=== PATIENT | male | born 1955 | race Caucasian/White ===

== ENCOUNTER 2019-03-23 06:04 | Outpatient (CLI) | payer MEDICARE ==
--- NOTE | 2019-03-25 18:46 | EKG ---
Test Reason : Blood Pressure : / mmHG Vent. Rate : 070 BPM Atrial Rate : 070 BPM P-R Int : 160 ms QRS Dur : 100 ms QT Int : 394 ms P-R-T Axes : 053 005 048 degrees QTc Int : 425 ms Normal sinus rhythm Nonspecific ST abnormality Abnormal ECG When compared with ECG of 27-MAY-2016 13:42, Premature ventricular complexes are no longer Present Vent. rate has decreased BY 53 BPM Nonspecific T wave abnormality, improved in Inferior leads Nonspecific T wave abnormality no longer evident in Lateral leads Confirmed by DR. Cameron LONDONO ([id number]) on 03/25/2019 6:45:47 PM Referred By: DANAE Confirmed By:DR. Cameron LONDONO
== END 2019-03-23 06:05 | disposition home or self-care (01) ==
LOC: LABBT 06:04
PROVIDERS: ATTEND Urology
DX: Z01.818 Encounter for other preprocedural examination (principal); C61 Malignant neoplasm of prostate
CPT/HCPCS: 93005; 93010

== ENCOUNTER 2019-03-23 10:30 | Inpatient (IN) | payer MEDICARE ==
[2019-03-23 10:18] VITALS: BMI 33.5
[2019-03-23 11:36] LABS: Hemoglobin 14.4 g/dL (14.0-18.0); Mean Corpuscular HGB CONC 35.7 g/dL (32.0-36.0); Mean Corpuscular Hemoglobin 34.9 pg (27.0-31.0); Mean Corpuscular Volume 97.7 fL (78.0-98.0); Mean Platelet Volume 6.6 fL (7.4-10.4); Platelet Count 222 thou/uL (130-400); RBC Distribution Width 11.6 % (11.5-14.5); Red Blood Cell (RBC) Count 4.12 mill/uL (4.70-6.10); White Blood Cell (WBC) Count 7.4 thou/uL (4.8-10.8)
[2019-03-23 11:38] LABS: Bacteria/HPF None Seen HPF (None Seen); Bilirubin Negative (Negative); Blood, Urine Negative (Negative); Clarity Clear (Clear); Glucose, Urine (Dipstick) Normal (Negative); Leukocyte Negative Leu/uL (Negative); Nitrite Negative (Negative); Protein, Urine (Dipstick) Negative (Neg-Trace); RBC/HPF 0-3 HPF (0-3); Squamous Epithelial None Seen HPF (0-3); Urobilinogen Normal mg/dL (Less than 2); WBC/HPF 0-3 HPF (0-3)
[2019-03-23 11:42] LABS: INR-International Normal Ratio 0.9; PTT 26.1 SEC (22.9-36.1); Prothrombin Time 12.4 SEC (12.0-14.7)
[2019-03-23 13:07] LABS: ALT (SGPT) 33 U/L (8-55); AST (SGOT) 28 U/L (5-34); Albumin 4.5 g/dL (3.4-4.8); Alkaline Phosphatase 68 U/L (40-110); Anion Gap 17 mmol/L (10-20); BUN (Urea Nitrogen) 14 mg/dL (8.4-25.7); Bilirubin, Total 0.9 mg/dL (0.2-1.2); Calc. Creatinine Clearance 0 mL/min (70-130); Calcium 9.9 mg/dL (7.8-10.44); Carbon Dioxide 22 mmol/L (23-31); Chloride 105 mmol/L (98-107); Estimated GFR-MDRD 47; Globulin 2.5 g/dL (2.4-3.5); Glucose 102 mg/dL (80-115); Potassium 4.7 mmol/L (3.5-5.1); Sodium 139 mmol/L (136-145)
[2019-03-30] MEDS ORDERED: Calcium Chloride 1 GM/10 ML Abboject SYRINGE ONE (10:02)
[2019-03-30] MEDS ORDERED: PHENYLEPHRINE-NS 100 MCG/ML 10 ML SYRINGE ONE (10:02)
[2019-03-30] MEDS ORDERED: ePHEDrine/0.9% NaCl/PF SYRINGE 50 mg/10 ml ONE (10:02)
[2019-03-30] MEDS ORDERED: Dexamethasone 20 MG/5 ML VIAL ONE (10:02)
[2019-03-30] MEDS ORDERED: Glycopyrrolate 0.2 MG/ML 5 ML SYRINGE ONE (10:02)
[2019-03-30] MEDS ORDERED: PROPOFOL 200 MG/20 ML VIAL ONE (10:02)
[2019-03-30] MEDS ORDERED: Rocuronium Bromide 10 MG/ML (10ML VIAL) ONE (10:02)
[2019-03-30] MEDS ORDERED: Ondansetron PF 4 MG/2 ML Vial ONE (10:02)
[2019-03-30] MEDS ORDERED: Gentamicin 80 MG/2 ML VIAL ONE ×2 (11:51→13:14)
[2019-03-30] MEDS ORDERED: Sodium Chloride 0.9% 0 ML ONE ×2 (11:51→13:14)
[2019-03-30] MEDS ORDERED: Midazolam HCl 2 mg/2 ml Vial ONE (11:55)
[2019-03-30] MEDS ORDERED: cefOXitin Sodium/Dextrose,Iso 1 GM in Premix Bag 1 BAG IVPB SCH (12:00)
[2019-03-30] MEDS ORDERED: Fentanyl 250 MCG/5 ML VIAL ONE (12:58)
[2019-03-30] MEDS ORDERED: HYDROmorphone 0.5 MG/0.5 ML SYRINGE ONE (12:59)
[2019-03-30] MEDS ORDERED: Albuterol Sulfate 1.25 MG/3 ML NEB ONE (13:15)
[2019-03-30] MEDS ORDERED: Rocuronium Bromide 50 MG/5 ML VIAL ONE (15:01)
[2019-03-30] MEDS ORDERED: SUGAMMADEX SODIUM 200 MG/2 ML VIAL ONE (16:04)
[2019-03-30] MEDS ORDERED: B & O ONE (17:04)
[2019-03-30] MEDS ORDERED: Promethazine HCl 25 MG/ML VIAL SLOW IVP PRN (17:27)
[2019-03-30] MEDS ORDERED: HYDROmorphone 2 MG/ML VIAL SLOW IVP PRN (17:27)
[2019-03-30] MEDS ORDERED: Ondansetron HCl/PF 4 MG/2 ML Vial IVP PRN (17:27)
[2019-03-30] MEDS ORDERED: Promethazine HCl 25 MG/ML VIAL IM PRN (17:27)
[2019-03-30 18:20] LABS: Hemoglobin 12.5 g/dL (14.0-18.0)
[2019-03-30] MEDS ORDERED: Dextrose 50% Abboject 50 ML SYRINGE SLOW IVP PRN (20:21)
[2019-03-30] MEDS ORDERED: Dextrose 5% in Water 1,000 ML IV PRN (20:21)
[2019-03-30] MEDS ORDERED: Morphine 2 MG/ML SYRINGE SLOW IVP PRN (20:21)
[2019-03-30] MEDS ORDERED: Bisacodyl 10 MG SUPP PR PRN (20:21)
[2019-03-30] MEDS ORDERED: diphenhydrAMINE 25 MG CAP PO PRN (20:21)
[2019-03-30] MEDS ORDERED: hydrALAZINE 20 MG/ML VIAL SLOW IVP PRN (20:21)
[2019-03-30] MEDS ORDERED: Oxybutynin 5 MG TAB PO PRN (20:21)
[2019-03-30] MEDS ORDERED: Sodium Chloride 0.9% 1,000 ML IV SCH (20:21)
[2019-03-30] MEDS ORDERED: Ondansetron PF 4 MG/2 ML Vial IVP PRN (20:21)
[2019-03-30] MEDS ORDERED: Non-Formulary Item 1 EACH (Gabapentin [Gabapentin] 1 TAB) PO SCH (20:21)
[2019-03-30] MEDS ORDERED: Mag-Al 1200 mg/1200 mg/30 ML UDCUP PO PRN (20:21)
[2019-03-30] MEDS ORDERED: Insulin Regular 300 UNITS/3 ML VIAL SC PRN (20:21)
[2019-03-30] MEDS ORDERED: Hyoscyamine Sulfate SL 0.125 mg Tablet SL PRN (20:21)
[2019-03-30] MEDS ORDERED: HYDROcodone/Acetaminophen 5/325 mg Tablet PO PRN ×2 (20:21)
[2019-03-30] MEDS ORDERED: Morphine 4 MG/ML VIAL SLOW IVP PRN (20:21)
[2019-03-30] MEDS: cefOXitin 1.5 GM in Sodium Chloride 0.9% 100 ML IVPB SCH (21:13)
[2019-03-30] MEDS: Famotidine/PF 20 mg/2ml Vial SLOW IVP SCH (21:13)
[2019-03-30] MEDS: Docusate 100 MG CAP PO SCH (21:13)
--- NOTE | 2019-03-31 01:20 | OP ---
DATE OF PROCEDURE: 03/30/2019 SERVICE: Urology. [employer] COMM[employer]ION AGENT: Josie Chaudhry DO PREOPERATIVE DIAGNOSIS: Prostate cancer. POSTOPERATIVE DIAGNOSIS: Prostate cancer. PROCEDURE PERFORMED: Radical retropubic prostatectomy with unilateral left pelvic lymph node dissection. INDICATION FOR PROCEDURE: Mr. Pastrana is a 63-year-old white male with diagnosis of Ashli 3 + 4 prostate cancer with a PSA of 7.2. I had talked to him about prostatectomy versus active surveillance versus radiation. Due to his comorbidities and risk factors, I recommended radiation, first line. However, the patient did not want radiation as he does not want the side effects associated with this. He stated he would rather go for surgery. Due to his comorbidities and size, I opted for an open prostatectomy or referral to a tertiary care center. He opted to go for an open surgery here. Risks and benefits were discussed and he agreed to proceed forward. DESCRIPTION OF PROCEDURE: After identification of armband and verification of consent, the patient was brought back to the operating room. He underwent general anesthesia with endotracheal intubation. He was then placed in the supine position with the bed flexed. Pressure points padded and prepped and draped in usual sterile fashion. After appropriate time-out, a Mcgee catheter, 16-Micronesian, was placed with ease into the patient's bladder. Incision was initially made from the pubic symphysis over to just below the umbilicus using a 10 blade. Dissection was carried down through the fatty tissues up to the external oblique aponeurosis in the midline. This was divided using the 15 blade. Hemostasis was then performed on the fatty tissues with Bovie electrocautery. The rectus muscles were in the midline down to the pyramidalis muscles which were also divided down to the pubic symphysis and dissected upward up to the arcuate line. The space of Retzius was developed on either side of the prostate and bladder to develop the space all the way down toward the rectum. The iliac veins were identified on both sides. A Bookwalter retractor was then placed and used for retraction of the bladder cephalad and for exposure. The tissues above the puboprostatic ligaments were cauterized and removed. The endopelvic fasciae on both sides were swept clear. At this point , we elected to start with the lymph node dissection. We started on the left side where the lymph nodes were cleared off the iliac vein down to the obturator nerve. There was not a significant amount of tissue, but the packet was submitted for routine pathologic evaluation. On the right side, the lymph node dissection was begun, but due to an injury to the circumflex femoral vein, which resulted in bleeding, we opted to abort the lymph node dissection on this side. The vein was controlled using a 3-0 Vicryl on an RB-1 to suture ligate the vein, which resulted in excellent hemostasis. There was no further bleeding on this side. The dissection was aborted. The obturator nerve was identified and found to be unharmed on both sides. The bladder was then retracted back again in the cephalad position along the midline. The endopelvics were opened on both sides of the prostate using right angle and Bovie electrocautery. The periprosthetic space was then developed bluntly using a digital dissection. Once the DVC was isolated, a right angle was used to pass a 0 Vicryl around the dorsal venous complex and then ligated down and additional ligation was performed with a [address]-1, which was double passed and then tied down. The DVC was then divided using Bovie electrocautery down to the urethra. The urethra was then opened, using a 15 blade on a long knife handle to cut the anterior and lateral aspects of the urethra. The rectourethralis muscle was then gently from the rectum underneath using a right angle and Metzenbaum scissors used to cut the rectourethralis muscle. The prostate was then dissected back manually along Denonvilliers fascia toward the seminal vesicles. The pedicles on both sides were dissected off the rectum with a right angle and then cauterized with Bovie electrocautery. Nerve sparing was not performed secondary to the patient's comorbidities and pre-existing ED. The prostate was dissected back until the lateral pedicles were identified. These were ligated and then divided using Bovie electrocautery. The seminal vesicles were then identified and dissected deep into the patient's pelvis to allow exposure of the vas deferens and seminal vesicles. Due to some adherence and attachments at the tips, we were not able to get the entire seminal vesicle out, but got probably about 50% of the seminal vesicles, which were divided and removed and left attached to the prostate. The tips of the seminal vesicles were left inside the patient's prostate as they were too deep to be able to remove. The vas deferens were clipped and ligated on both sides. The bladder neck dissection was then begun and done sharply with Metzenbaum scissors for a bladder neck sparing dissection. This was taken all the way down to the urethra, which was then sharply divided. The prostate was then freed and delivered for routine pathologic evaluation. Inspection of the rectum did not demonstrate any rectal injuries. There was no significant bleeding from the pelvic sidewall. There was mild oozing from along the bladder neck and from along the seminal vesicle dissection site, but this was relatively mild. Sutures were then placed using a 2-0 Vicryl on a UR-6 at 12 o'clock, 3 o'clock, 9 o'clock, 7 o' clock, 5 o'clock and 6 o'clock from an outside-in fashion on the urethral side and then from an inside-out fashion on the bladder neck side. A working catheter was used to guide the sutures and once all the sutures had been placed on the urethral side and the posterior sutures placed on the anastomotic side, an 18-Micronesian Mcgee catheter was guided into the patient's bladder and 10 mL of sterile water placed into the balloon. The remainder of the anastomotic stitches were then passed through the corresponding locations on the bladder neck side. An additional 5 mL was then placed into the balloon for a total of 15 mL of sterile water in the balloon. The Bookwalter retractors were then taken off the bladder and some of the flexion taken off the bed to allow the bladder neck to come down toward the base of the urethra. The sutures were then gently cinched down and tied completely until there was good coaptation of the bladder neck onto the urethra. The pelvis was then copiously irrigated and the irrigation removed. The site of the pelvic lymph node dissection on the right was reinspected and there was not found to be any bleeding. FloSeal was applied to this area as well as along the dorsal venous complex and around the bladder neck. A CHANELLE drain was then brought in along the patient's left side taking care to avoid the epigastric artery, which could be palpated underneath the fascia. The drain was positioned, not directly over, but on the anterior aspect of the bladder. This was sewed in with a 3-0 nylon. The fascia was then closed using a #1 PDS in a running fashion from above and below meeting at the midline, taking care not to get too close to or ligate the drain. The incision was then copiously irrigated and dried. Devang was applied to the subcutaneous tissues and the skin closed with surgical skin kimo. The patient was then taken out of positioning. He had a StatLock affixed to his catheter and a 16A B and O suppository was placed by the surgeon when there was no blood on examining finger. The patient was then awakened and taken to PACU for recovery in stable condition. COMPLICATIONS: Right circumflex femoral vein injury which resulted in inability to complete the right-sided pelvic lymph node dissection. This was controlled with suture ligation and there was no significant sequelae or consequence to this. ESTIMATED BLOOD LOSS: 600 mL. RETAINED TUBES AND DRAINS: A #19 CHANELLE drain as well as 18-Micronesian Mcgee catheter. SPECIMENS: Prostate, seminal vesicles, and left obturator lymph nodes. DISPOSITION: The patient will be admitted to the hospital for postoperative recovery. We will keep him in the hospital for approximately 2-3 days at which point, he should be cleared for discharge to go home with his catheter. We will plan his void trial in approximately 2 weeks. Job ID: [id number] [facility]
[2019-03-31 05:17] LABS: #Eosinphils 0.1 thou/uL (0.0-0.7); #Lymphocytes 1.4 thou/uL (1.20-3.40); #Monocytes 1.2 thou/uL (0.11-0.59); #Neutrophils 10.2 thou/uL (1.40-6.50); %Basophils 0.2 % (0.0-1.0); %Eosinophils 0.4 % (0.0-10.0); %Lymphocytes 10.6 % (21.0-51.0); %Monocytes 9.6 % (0.0-10.0); %Neutrophils 79.2 % (42.0-75.0); Hemoglobin 12.1 g/dL (14.0-18.0); Mean Corpuscular HGB CONC 35.4 g/dL (32.0-36.0); Mean Corpuscular Hemoglobin 35.2 pg (27.0-31.0); Mean Corpuscular Volume 99.4 fL (78.0-98.0); Mean Platelet Volume 6.3 fL (7.4-10.4); Platelet Count 171 thou/uL (130-400); RBC Distribution Width 12.1 % (11.5-14.5); Red Blood Cell (RBC) Count 3.45 mill/uL (4.70-6.10); White Blood Cell (WBC) Count 12.9 thou/uL (4.8-10.8)
[2019-03-31] MEDS: cefOXitin 1.5 GM in Sodium Chloride 0.9% 100 ML IVPB SCH ×2 (05:33→12:52)
[2019-03-31 05:41] LABS: Anion Gap 15 mmol/L (10-20); BUN (Urea Nitrogen) 12 mg/dL (8.4-25.7); Calc. Creatinine Clearance 101 mL/min (70-130); Calcium 8.4 mg/dL (7.8-10.44); Carbon Dioxide 21 mmol/L (23-31); Chloride 105 mmol/L (98-107); Estimated GFR-MDRD 63; Glucose 130 mg/dL (80-115); Potassium 4.4 mmol/L (3.5-5.1); Sodium 137 mmol/L (136-145)
[2019-03-31] MEDS: Carvedilol 6.25 MG TAB PO SCH ×2 (09:02→17:35)
[2019-03-31] MEDS: Lisinopril 2.5 MG TAB PO SCH (09:02)
[2019-03-31] MEDS: Docusate 100 MG CAP PO SCH ×2 (09:03→20:37)
[2019-03-31] MEDS: Furosemide 40 MG TAB PO SCH (09:03)
[2019-03-31] MEDS: Famotidine/PF 20 mg/2ml Vial SLOW IVP SCH ×2 (09:03→20:37)
[2019-03-31] MEDS: Potassium Chloride 10 MEQ TAB PO SCH ×2 (09:03→17:35)
[2019-03-31] MEDS: Albuterol Sulfate 2.5 mg/3 ml Neb NEB PRN ×2 (09:42→18:44)
--- NOTE | 2019-03-31 21:42 | PRG ---
DATE OF SERVICE: 03/31/2019 SUBJECTIVE: The patient states he is feeling relatively good. His pain is controlled. He denies any bladder spasms or bladder irritability. He has some mild incisional pain, which is being controlled by pain medication. He has not gotten up out of bed. He has a poor appetite, but is drinking fluids without any nausea or vomiting. He denies any fevers, shortness of breath, or chest pain. OBJECTIVE: VITAL SIGNS: Temperature 98.4, pulse 89, respirations 18, blood pressure 133/79, and saturations 93% on 2 L nasal cannula. GENERAL: No apparent distress. Communicative and alert. CARDIOVASCULAR: Regular rate and rhythm. ABDOMEN: Soft, nontender, nondistended, protuberant. Incision is clean, dry, and intact, dressed. CHANELLE drain is serosanguineous. : Mcgee catheter in place with blood-tinged urine. No clots. EXTREMITIES: No clubbing, cyanosis, or edema. LABORATORY EVALUATION: The full set of labs are in the [facility] system, which I have reviewed. Of note, the patient's white count is 12.9, hemoglobin of 12.1, which is stable from yesterday. Creatinine is currently 1.18. In's and out's in CHANELLE drain has put out a total of 100 mL with 1300 mL of urine output since PACU. ASSESSMENT AND PLAN: A 63-year-old white male, status post radical retropubic prostatectomy and unilateral lymph node dissection, postop day 1. The patient's hemoglobin is stable. There is no evidence of ongoing bleeding. Recommend the patient to get up out of bed and ambulate for deep vein thrombosis prophylaxis as due to high risk of postoperative hemorrhage and hematoma formation. I would not recommend chemical prophylaxis. We will continue SCDs, incentive spirometer use encouraged. We will continue to monitor vitals. The patient can keep pain controlled, advance to regular diet and walk without difficulties. He potentially can be discharged after his catheter training. I anticipate discharge on . We will continue to monitor and make adjustments as necessary. Job ID: [id number]
[2019-04-01 05:40] LABS: #Eosinphils 0.5 thou/uL (0.0-0.7); #Lymphocytes 1.3 thou/uL (1.20-3.40); #Monocytes 1.3 thou/uL (0.11-0.59); #Neutrophils 10.5 thou/uL (1.40-6.50); %Basophils 0.2 % (0.0-1.0); %Eosinophils 3.7 % (0.0-10.0); %Lymphocytes 9.6 % (21.0-51.0); %Monocytes 9.4 % (0.0-10.0); %Neutrophils 77.1 % (42.0-75.0); Hemoglobin 11.9 g/dL (14.0-18.0); Mean Corpuscular HGB CONC 34.7 g/dL (32.0-36.0); Mean Corpuscular Hemoglobin 34.6 pg (27.0-31.0); Mean Corpuscular Volume 99.6 fL (78.0-98.0); Mean Platelet Volume 7.1 fL (7.4-10.4); Platelet Count 166 thou/uL (130-400); RBC Distribution Width 12.1 % (11.5-14.5); Red Blood Cell (RBC) Count 3.45 mill/uL (4.70-6.10); White Blood Cell (WBC) Count 13.6 thou/uL (4.8-10.8)
[2019-04-01 05:54] LABS: Anion Gap 9 mmol/L (10-20); BUN (Urea Nitrogen) 11 mg/dL (8.4-25.7); Calc. Creatinine Clearance 109 mL/min (70-130); Calcium 8.8 mg/dL (7.8-10.44); Carbon Dioxide 29 mmol/L (23-31); Chloride 100 mmol/L (98-107); Estimated GFR-MDRD 68; Glucose 142 mg/dL (80-115); Potassium 4.2 mmol/L (3.5-5.1); Sodium 134 mmol/L (136-145)
[2019-04-01] MEDS: Carvedilol 6.25 MG TAB PO SCH ×2 (08:26→17:44)
[2019-04-01] MEDS: Potassium Chloride 10 MEQ TAB PO SCH ×2 (08:26→17:44)
[2019-04-01] MEDS: Docusate 100 MG CAP PO SCH ×2 (08:26→21:46)
[2019-04-01] MEDS: Lisinopril 2.5 MG TAB PO SCH (08:26)
[2019-04-01] MEDS: Famotidine/PF 20 mg/2ml Vial SLOW IVP SCH ×2 (08:26→21:47)
[2019-04-01] MEDS: Furosemide 40 MG TAB PO SCH (08:26)
--- NOTE | 2019-04-01 10:27 | PRG ---
DATE OF SERVICE: 04/01/2019 SUBJECTIVE: The patient states he is feeling very good. He has not used any IV pain medication. He is just using his oral pain medication and states his pain is pretty well controlled. His catheter has been draining clear. He has been up out of bed walking. He is tolerating a regular diet. He denies any chest pain, shortness of breath, or lower extremity edema. OBJECTIVE: VITAL SIGNS: Temperature 97.8, pulse 92, respirations 16, blood pressure 128/82, saturation 96% on 2 L nasal cannula. GENERAL: No apparent distress. Communicative and alert. CARDIOVASCULAR: Regular rate and rhythm. ABDOMEN: Soft, nontender, nondistended. Positive bowel sounds. Incision clean, dry, and intact, dressed. CHANELLE drain serosanguineous. : Mcgee catheter in place with slightly blood-tinged urine. EXTREMITIES: No clubbing, cyanosis, or edema. LABORATORY EVALUATION: The full set of labs are in the [facility] system, which I have reviewed. Of note, the patient's white count is 13.6 with hemoglobin of 11.9. Creatinine of 1.1. ASSESSMENT AND PLAN: A 63-year-old white male, status post radical retropubic prostatectomy with unilateral pelvic lymph node dissection, postop day #2 recovering very well. I anticipate that he will be able to be discharged tomorrow. We will plan to remove the CHANELLE drain today and remove his dressing tomorrow. I will have him continue walking and staying out of bed as much as possible for ambulation and using his incentive spirometer. If his pain is controlled today until tomorrow, I think he can be discharged tomorrow. We will start performing leg bag teaching today. Job ID: [id number]
[2019-04-02 06:17] LABS: #Eosinphils 0.6 thou/uL (0.0-0.7); #Lymphocytes 1.9 thou/uL (1.20-3.40); #Monocytes 1.3 thou/uL (0.11-0.59); #Neutrophils 8.5 thou/uL (1.40-6.50); %Basophils 0.3 % (0.0-1.0); %Eosinophils 5.1 % (0.0-10.0); %Lymphocytes 15.6 % (21.0-51.0); %Monocytes 10.4 % (0.0-10.0); %Neutrophils 68.5 % (42.0-75.0); Hemoglobin 12.5 g/dL (14.0-18.0); Mean Corpuscular HGB CONC 34.3 g/dL (32.0-36.0); Mean Corpuscular Hemoglobin 34.3 pg (27.0-31.0); Mean Platelet Volume 6.5 fL (7.4-10.4); Platelet Count 203 thou/uL (130-400); RBC Distribution Width 12.1 % (11.5-14.5); Red Blood Cell (RBC) Count 3.65 mill/uL (4.70-6.10); White Blood Cell (WBC) Count 12.4 thou/uL (4.8-10.8)
[2019-04-02 06:28] LABS: Anion Gap 14 mmol/L (10-20); BUN (Urea Nitrogen) 13 mg/dL (8.4-25.7); Calc. Creatinine Clearance 114 mL/min (70-130); Calcium 8.9 mg/dL (7.8-10.44); Carbon Dioxide 23 mmol/L (23-31); Chloride 103 mmol/L (98-107); Estimated GFR-MDRD 72; Glucose 118 mg/dL (80-115); Potassium 3.9 mmol/L (3.5-5.1); Sodium 136 mmol/L (136-145)
[2019-04-02] MEDS: Docusate 100 MG CAP PO SCH (08:00)
[2019-04-02] MEDS: Potassium Chloride 10 MEQ TAB PO SCH (08:00)
[2019-04-02] MEDS: Carvedilol 6.25 MG TAB PO SCH (08:01)
[2019-04-02] MEDS: Lisinopril 2.5 MG TAB PO SCH (08:01)
[2019-04-02] MEDS: Famotidine/PF 20 mg/2ml Vial SLOW IVP SCH (08:01)
[2019-04-02] MEDS: Furosemide 40 MG TAB PO SCH (08:07)
--- NOTE | 2019-04-02 11:34 | PRG ---
DATE OF SERVICE: 04/02/2019 SUBJECTIVE: The patient states he is feeling fine. He only has pain when coughing. His pain is controlled with [place]. He has been up walking around out of bed. He has been able to take care of his catheter. He had a bowel movement this morning. He is eating and drinking without problems. He denies any chest pain, shortness of breath, or lower extremity swelling. OBJECTIVE: VITAL SIGNS: Temperature 97.8, pulse 78, respirations 20, blood pressure 128/83, and saturation 94% on room air. GENERAL: No apparent distress. Communicative and alert. CARDIOVASCULAR: Regular rate and rhythm. ABDOMEN: Soft, nontender, and nondistended. Incision clean, dry, and intact. CHANELLE has been removed. : Mcgee catheter in place with extremely minor blood-tinged urine. EXTREMITIES: No clubbing, cyanosis, or edema. LABORATORY EVALUATION: The full set of labs are in the [facility] system, which I have reviewed. Of note, the patient's white count is 12.4 with a hemoglobin of 12.5, which is stable. Creatinine is 1.05. ASSESSMENT AND PLAN: A 63-year-old white male, status post radical retropubic prostatectomy with unilateral lymph node dissection, postop day #3, recovered very well. He should be amenable to discharge. He will need to go home with his Mcgee catheter. I have gone over all of his discharge instructions and I will plan to see him back in 2 weeks for catheter removal, staple removal, and review of pathology. Job ID: [id number]
[2019-04-02 12:14] VITALS: BP 109/75; TEMP 98.4
--- NOTE | 2019-04-03 02:35 | PQF ---
PHUONG CARLOS ROBIN MD [id number] SURG B- [id number] CLINICAL DOCUMENTATION CLARIFICATION FORM: POST DISCHARGE Addendum to original discharge summary date: ____ Late entry note date: __ DATE: 03/30/19 ATTN: Javier Armando Please exercise your independent, professional judgment in responding to the clarification form. Clinical indicators are provided on the bottom of this form for your review Based on your clinical judgment, can you please specify the known or suspected condition being treated, evaluated or monitored? Please check appropriate box(s): In the description of the operative procedure a right femoral vein injury was noted by the surgeon. If possible would you please further clarify if this was: [ ] Incidental occurrence inherent in the surgical procedure [ ] Complication of the procedure [ X ] Other please specify__Right circumflex femoral vain was injured not the femoral vein - it is a complication [ ] Unable to determine For continuity of documentation, please document condition throughout progress notes and discharge summary. Thank You. CLINICAL INDICATORS - SIGNS / SYMPTOMS / LABS OP Note 03/30 "right circumflex femoral vein injury which reulted in inability to complete the right sided pelvic lymph node dissection" OP Note 03/30 "This was controlled with suture ligation" OP Note 03/30 "there was no significant sequelae or consequence to this" OP Note 03/30 "mild oozing from along the bladder neck" RISK FACTORS OP Note 03/30-Prostate cancer OP Note 03/30-s/p prostatectomy with lymph node dissection OP Note 03/30-63 years old male TREATMENTS: JUL 21-IVF (This form is maintained as a part of the permanent medical record) 2014 [employer]. All Rights Reserved Pradip [email or web address] [not provided] MTDD
--- NOTE | 2019-04-03 03:05 | DIS ---
DATE OF ADMISSION: 03/30/2019 DATE OF DISCHARGE: 04/02/2019 ADMITTING PHYSICIAN: Javier Dodge MD. DISCHARGING PHYSICIAN: Javier Dodge MD ADMITTING DIAGNOSIS: Prostate cancer. DISCHARGE DIAGNOSIS: Prostate cancer. PROCEDURE PERFORMED: While inpatient, radical retropubic prostatectomy with unilateral lymph node dissection. BRIEF HISTORY: Mr. Pastrana is a 63-year-old white male with history of Burnet 3 + 4 prostate cancer. He elected to undergo a radical retropubic prostatectomy instead of radiation given his comorbidities and size. He was not a candidate locally for robotic prostatectomy. All risks and benefits have been discussed and the full H and P can be found in the scanned portion of the [employer] system. HOSPITAL COURSE: After surgery (please see operative note for details), the patient was admitted to the hospital for postoperative recovery. He had a CHANELLE drain and a Mcgee catheter which was draining well. He was started on clear liquids with diabetic modifications and advanced on postop day #1 to a regular diet, which he tolerated well. He was up out of bed walking on postop day #1. His pain was fairly well controlled with hydrocodone. He did not require morphine. His CHANELLE only put out approximately 100 mL on the 1st night and 30 mL the 2nd night, so it was removed by postop day #2. The patient was able to ambulate well without difficulty. He was tolerating a regular diet without nausea or vomiting. He did have a bowel movement before discharge. His hemoglobin remained stable throughout the hospitalization with a low point of 11.9 and hemoglobin of 12.5 at the time of discharge. On postop day #3, the patient had met all criteria for discharge. He was stable and was cleared to be discharged with his Mcgee catheter in place. DISPOSITION: Discharge to home with catheter. DISCHARGE CONDITION: Good. DISCHARGE MEDICATIONS: Include resuming all of his home medications except aspirin, which he will hold for approximately 7 to 10 days. In addition, he will be given hydrocodone/acetaminophen 5/325 mg 1-2 tabs p.o. q.6 hours p.r.n. pain, Colace 100 mg p.o. b.i.d., and levofloxacin 250 mg to take x1 2 hours before his followup appointment for catheter removal. DISCHARGE INSTRUCTIONS: Discussed with the patient in detail including when to call me and what to look out for, for dangerous signs and symptoms of pulmonary embolism, heart problems, catheter related problems, or surgical complications. I will see him back on 04/15, for catheter removal and staple removal and we will discuss his pathology at that time. Job ID: [id number]
== END 2019-04-02 13:45 | disposition home or self-care (01) | DRG 707 ==
LOC: SURG A 03-30 10:22 → SURG B 03-30 19:11
PROVIDERS: ADMIT Urology; ATTEND Urology
PROC: 0VT00ZZ Resection of Prostate, Open Approach (ICD-10-PCS; principal; 2019-03-30)
PROC: 0VT30ZZ Resection of Bilateral Seminal Vesicles, Open Approach (ICD-10-PCS; 2019-03-30)
PROC: 07BC0ZX Excision of Pelvis Lymphatic, Open Approach, Diagnostic (ICD-10-PCS; 2019-03-30)
PROC: 0VBQ0ZZ Excision of Bilateral Vas Deferens, Open Approach (ICD-10-PCS; 2019-03-30)
PROC: 06QM0ZZ Repair Right Femoral Vein, Open Approach (ICD-10-PCS; 2019-03-30)
DX: C61 Malignant neoplasm of prostate (principal); S75 Injury of blood vessels at hip and thigh level; I97.89 Other postprocedural complications and disorders of the circulatory system, not elsewhere classified; Y83.8 Other surgical procedures as the cause of abnormal reaction of the patient, or of later complication, without mention of misadventure at the time of the procedure; I10 Essential (primary) hypertension; E78.5 Hyperlipidemia, unspecified; E66.9 Obesity, unspecified; I48.91 Unspecified atrial fibrillation; E11.9 Type 2 diabetes mellitus without complications; G47.33 Obstructive sleep apnea (adult) (pediatric); J45.909 Unspecified asthma, uncomplicated; Z68.33 Body mass index [BMI] 33.0-33.9, adult; Z79.82 Long term (current) use of aspirin; Z79.899 Other long term (current) drug therapy; Z79.51 Long term (current) use of inhaled steroids
CPT/HCPCS: 36415; 36416; 80048; 80053; 81001; 85014; 85018; 85025; 85027; 85610; 85730; 86850; 86900; 86901; 87086; 88305; 88309; 94640; J0694; J1100; J1170; J1580; J1642; J2250; J2405; J2704; J3010; J3370; J3490; J7611; S0028

== ENCOUNTER 2019-05-21 11:52 | Outpatient (CLI) | payer MEDICARE, OTHER ==
--- NOTE | 2019-05-21 12:15 | RAD ---
EXAM: Chest Two Views 05/21/2019 12:12 PM HISTORY: Dyspnea COMPARISON: May 30, 2016 FINDINGS: Heart: There is mild cardiomegaly which is improved from the comparison examination. New single lead AICD Pulmonary vessels: Normal. Costophrenic angles: Clear. Lungs: No acute airspace consolidation. Pneumothorax: None. Osseous structures:Intact. Additional findings: None. IMPRESSION: New single lead AICD. Mild cardiomegaly without evidence of cardiac decompensation. No acute cardiopu lmonary abnormality is demonstrated.
== END 2019-05-21 11:53 | disposition home or self-care (01) ==
LOC: RAD 11:52
PROVIDERS: ATTEND Internal Medicine Critical Care Medicine
DX: R06.00 Dyspnea, unspecified (principal); I51.7 Cardiomegaly; Z95.810 Presence of automatic (implantable) cardiac defibrillator
CPT/HCPCS: 71046

== ENCOUNTER 2019-12-02 07:21 | Outpatient (CLI) | payer MEDICARE ==
[2019-12-02] MEDS ORDERED: Iopamidol 370 76% 50 ML VIAL FS ONE (08:47)
[2019-12-02] MEDS ORDERED: Iopamidol 370 76% 100 ML VIAL ONE (08:47)
--- NOTE | 2019-12-02 10:27 | CT ---
CT ABDOMEN AND PELVIS WITH IV CONTRAST: HISTORY: Recent diagnosis of prostate cancer. Rising PSA after prostatectomy. FINDINGS: The lung bases demonstrate multiple tiny subcentimeter lung nodules. A calcified granuloma is seen i n the left lung base. The liver demonstrates diffuse attenuation compared to the spleen consistent with fatty infiltration. No focal mass or abnormal biliary ductal dilatation is seen. No calcified gallstones are noted. T here are calcified granulomas in the spleen. The pancreas and adrenal glands are normal. There are cysts in the kidneys. The largest of these arises from the right kidney and measures 7.2 cm. No free air, free fluid, or lymphadenopathy is seen in the abdomen or pelvis. There are vascular calcifications without evidence of aneurysmal dilatation of the abdominal aorta. The small bowel loops are not abnormally dilated. A normal-appearing appendix is present. A small f at-containing umbilical hernia is seen. The patient is post prostatectomy. Multiple multilevel degenerative changes are seen in the spine. No osteolytic or osteoblastic lesions are noted. IMPRESSION: 1. Tiny lung nodules. ? mets. Dedicated CT scan of the chest is recommended. 2. Fatty liver. 3. Bilateral renal cysts. 4. Old granulomatous disease. POS: OFF
--- NOTE | 2019-12-02 12:20 | NM ---
NUCLEAR MEDICINE BONE SCAN WHOLE BODY: (Skeletal scintigraphy) DATE: 12/02/2019 HISTORY: 64-year-old male with prostate cancer. Rising serum PSA levels after prostatectomy. TECHNIQUE: IV injection of technetium 99m-MDP: 31.3 mCi 3 hour delayed whole body skeletal scintigraphy in anterior and posterior views. FINDINGS: There are no foci of asymmetrically increased uptake that are particularly suspicious for bone metast ases. IMPRESSION: No compelling evidence of skeletal metastasis.
== END 2019-12-02 07:22 | disposition home or self-care (01) ==
LOC: CT 07:21
PROVIDERS: ATTEND Radiology Radiation Oncology
DX: C61 Malignant neoplasm of prostate (principal); R97.20 Elevated prostate specific antigen [PSA]; Z90.79 Acquired absence of other genital organ(s); R91.8 Other nonspecific abnormal finding of lung field; K76.0 Fatty (change of) liver, not elsewhere classified; N28.1 Cyst of kidney, acquired; D71 Functional disorders of polymorphonuclear neutrophils
CPT/HCPCS: 74177; 78306; 82565; A9503; Q9967

== ENCOUNTER 2019-12-30 10:57 | Day surgery (SDC) | payer MEDICARE ==
[~2019-12-30 10:57] MED LIST: Lidocaine 1% PF 5 ML VIAL ONE; PHENYLEPHRINE-NS 100 MCG/ML 10 ML SYRINGE ONE; PROPOFOL 200 MG/20 ML VIAL ONE
--- NOTE | 2019-12-31 02:08 | OP ---
DATE OF PROCEDURE: 12/30/2019 PROCEDURE: Colonoscopy with snare polypectomy. PREPROCEDURE DIAGNOSIS: Average risk colon screening. POSTPROCEDURE DIAGNOSES: 1. A 15 mm carpet-like cecal polyp, status saline with injection and piecemeal polypectomy. 2. Scattered diverticulosis. DESCRIPTION OF PROCEDURE: Written consents were obtained prior to procedure. After adequate sedation, a rectal exam was performed that was normal. The endoscope was advanced to the cecum with some difficulty as patient's sigmoid colon is redundant. The quality of the bowel prep was good. The appendiceal orifice was visualized along with the ileocecal valve. Next to the appendiceal orifice, a 15 mm multilobulated flat polyp was noted. Using a total of 14 mL of saline, the lesion was lifted. Piecemeal polypectomy was performed. There was no bleeding noted. The ascending, hepatic flexure, transverse colon, splenic flexure, descending colon, and rectosigmoid colon all appeared normal. A few small diverticula were noted, scattered mostly in the left and transverse colon. Retroflexion was performed and was normal. The patient tolerated the procedure well. ASSESSMENT: 1. A 15-mm carpet-like polyp, status post polypectomy by saline injection and piecemeal polypectomy. 2. Mild diverticulosis coli. 3. Otherwise normal colon exam. RECOMMENDATION: Await biopsy results. Followup colonoscopy in 6 months to ascertain complete removal of polyp. Job ID: [id number]
== END 2019-12-30 15:52 | disposition home or self-care (01) ==
LOC: SDC 10:57
PROVIDERS: ATTEND Internal Medicine Gastroenterology
PROC: 0DBH8ZZ Excision of Cecum, Via Natural or Artificial Opening Endoscopic (ICD-10-PCS; principal; 2019-12-30)
DX: Z12.11 Encounter for screening for malignant neoplasm of colon (principal); D12.0 Benign neoplasm of cecum; K57.30 Diverticulosis of large intestine without perforation or abscess without bleeding; I10 Essential (primary) hypertension; E78.5 Hyperlipidemia, unspecified; Z79.899 Other long term (current) drug therapy; Z87.891 Personal history of nicotine dependence; Z95.810 Presence of automatic (implantable) cardiac defibrillator
CPT/HCPCS: 88305; J2704

== ENCOUNTER 2024-04-15 07:54 | Inpatient (IN) | payer MEDICARE ==
[2024-04-15] MEDS ORDERED: Ipratropium/Albuterol 3 ML NEB ONE (08:07)
[2024-04-15] MEDS ORDERED: Albuterol 2.5 MG (3 mL) NEB ONE ×2 (08:15→08:18)
[2024-04-15] MEDS ORDERED: Albuterol 2.5 MG (0.5 mL) NEB ONE (08:18)
[2024-04-15] MEDS ORDERED: Nitroglycerin 50 MG/250 ML BOT 250 ML ONE (08:19)
[2024-04-15 08:21] LABS: #Basophils 0.09 10x3/uL (0.0-0.2); %Basophils 0.7 % (0.0-1.0); %Eosinophils 2.5 % (0.0-10.0); %Lymphocytes 16.1 % (21.0-51.0); %Neutrophils 71.4 % (42.0-75.0); Hematocrit 37.1 % (42.0-52.0); Hemoglobin 11.4 g/dL (14.0-18.0); Mean Corpuscular HGB CONC 30.7 g/dL (32.0-36.0); Mean Corpuscular Hemoglobin 28.3 pg (27.0-31.0); Mean Corpuscular Volume 92.1 fL (78.0-98.0); Mean Platelet Volume 8.4 fL (7.4-10.4); Platelet Count 385 10x3/uL (130-400); RBC Distribution Width 16.1 % (11.5-14.5); Red Blood Cell (RBC) Count 4.03 mill/uL (4.70-6.10)
[2024-04-15] MEDS ORDERED: Furosemide 40 MG (4 mL) VIAL ONE (08:22)
[2024-04-15 08:37] LABS: ALT (SGPT) 16 U/L (8-55); AST (SGOT) 22 U/L (5-34); Albumin 3.5 g/dL (3.4-4.8); Alkaline Phosphatase 112 U/L (40-110); Anion Gap 15 mmol/L (10-20); BUN (Urea Nitrogen) 12 mg/dL (8.4-25.7); Bilirubin, Total 1.2 mg/dL (0.2-1.2); Calc. Creatinine Clearance 0 mL/min (70-130); Calcium 8.9 mg/dL (7.8-10.44); Carbon Dioxide 23 mmol/L (23-31); Chloride 104 mmol/L (98-107); Estimated GFR 59; Globulin 3.5 g/dL (2.4-3.5); Glucose 313 mg/dL (80-115); Potassium 4.2 mmol/L (3.5-5.1); Sodium 138 mmol/L (136-145)
[2024-04-15 08:53] LABS: Actual Bicarbonate (HCO3a) 25.1 mEq/L (22-28); Analyzer IN Cardio ER; Base Excess (BEa) -1.3 mEq/L (-2.0 to +3.0); CO2 Tension 49.3 mmHg (35.0-45.0); Calcium, Ionized (arterial) 1.13 mmol/L (1.12-1.30); Carboxyhemoglobin (COHb) 0.8 gm% (0.0-3.0); Hematocrit-ABG 35 % (42.0-52.0); Hemoglobin (Hb) 11.8 g/dL (14.0-18.0); O2 Tension (PaO2), arterial 152.8 mmHg (> 80.0); Potassium - ABG Lab 3.79 mmol/L (3.70-5.30); pH, Arterial 7.325 (7.35-7.45)
[2024-04-15 09:08] LABS: Puncture Site Right Radial artery
[2024-04-15 09:09] LABS: ALV-art Gradient 213.375 mmHg (0-20)
[2024-04-15 10:02] LABS: Troponin I 0.035 ng/mL (< 0.028)
[2024-04-15] MEDS ORDERED: Ondansetron PF 4 MG/2 ML Vial IVP PRN (10:52)
[2024-04-15] MEDS ORDERED: Acetaminophen 500 MG TAB PO PRN (10:52)
[2024-04-15] MEDS ORDERED: Ondansetron ODT 4 MG TAB PO PRN (10:52)
[2024-04-15] MEDS: Ipratropium/Albuterol 3 ML NEB NEB SCH (11:00)
[2024-04-15 11:22] LABS: Bacteria/HPF 2+ HPF (None Seen); Bilirubin Negative (Negative); Blood, Urine 3+ (Negative); Clarity Extra Turbid (Clear); Glucose, Urine (Dipstick) Normal (Negative); Ketone, Urine Negative (Negative); Leukocyte 500 Leu/uL (Negative); Nitrite Negative (Negative); Protein, Urine (Dipstick) 70 mg/dL (Neg-Trace); RBC/HPF Greater than 50 HPF (0-3); Specific Gravity, Urine 1.004 (1.002-1.036); Squamous Epithelial None Seen HPF (0-3); Urobilinogen Normal mg/dL (Less than 2); WBC/HPF Greater than 50 HPF (0-3)
[2024-04-15 11:57] VITALS: BMI 31.9
[2024-04-15] MEDS: LevoFLOXacin 500 mg/D5W 500 MG in Premix 1 BAG IVPB SCH (12:38)
[2024-04-15] MEDS: methylPREDNISolone Sod Succ 40 MG VIAL IVP SCH (12:38)
[2024-04-15] MEDS: Furosemide 40 MG (4 mL) VIAL SLOW IVP SCH (13:21)
[2024-04-15 15:45] LABS: Troponin I 0.056 ng/mL (< 0.028)
[2024-04-15 20:41] LABS: Troponin I 0.063 ng/mL (< 0.028)
[2024-04-15] MEDS: Famotidine 20 MG TAB PO SCH (21:57)
[2024-04-15] MEDS: Enoxaparin 100 MG (1 mL) SYRINGE SC SCH (21:57)
[2024-04-15] MEDS: Sacubitril 49 MG/Valsartan 51 MG TABLET PO SCH (21:57)
[2024-04-16 05:42] LABS: #Basophils Less than 0.03 10x3/uL (0.0-0.2); #Eosinophils Less than 0.03 10x3/uL (0.0-0.7); %Basophils 0.1 % (0.0-1.0); %Lymphocytes 4.9 % (21.0-51.0); %Neutrophils 86.4 % (42.0-75.0); Hematocrit 31.2 % (42.0-52.0); Hemoglobin 10.1 g/dL (14.0-18.0); Mean Corpuscular HGB CONC 32.4 g/dL (32.0-36.0); Mean Corpuscular Volume 89.7 fL (78.0-98.0); Mean Platelet Volume 8.2 fL (7.4-10.4); Platelet Count 254 10x3/uL (130-400); Red Blood Cell (RBC) Count 3.48 mill/uL (4.70-6.10)
[2024-04-16 06:28] LABS: ALT (SGPT) 14 U/L (8-55); AST (SGOT) 20 U/L (5-34); Albumin 3.2 g/dL (3.4-4.8); Alkaline Phosphatase 88 U/L (40-110); Anion Gap 15 mmol/L (10-20); BUN (Urea Nitrogen) 16 mg/dL (8.4-25.7); Bilirubin, Total 1.1 mg/dL (0.2-1.2); Calc. Creatinine Clearance 90 mL/min (70-130); Calcium 8.3 mg/dL (7.8-10.44); Carbon Dioxide 25 mmol/L (23-31); Chloride 102 mmol/L (98-107); Estimated GFR 68; Globulin 2.9 g/dL (2.4-3.5); Glucose 176 mg/dL (80-115); Magnesium 2.2 mg/dL (1.6-2.6); Potassium 3.5 mmol/L (3.5-5.1); Protein, Total 6.1 g/dL (5.8-8.1); Sodium 138 mmol/L (136-145)
[2024-04-16] MEDS: Aspirin 81 mg Enteric Coated Tablet PO SCH (09:23)
[2024-04-16] MEDS: Spironolactone 25 MG TAB PO SCH (09:25)
[2024-04-16] MEDS: Atorvastatin Calcium 40 MG TAB PO SCH (09:25)
[2024-04-16] MEDS: Dapagliflozin Propanediol 10 MG TAB PO SCH (09:36)
[2024-04-16] MEDS: Carvedilol 3.125 MG TAB PO SCH (17:06)
[2024-04-17] MEDS: FLU (Fluad Triv) TS24-25 (65UP)/MF59C/PF 45 MCG/0.5 ML Syringe IM ONE (08:10)
[2024-04-17] MEDS: Oxybutynin ER 5 MG TAB PO SCH (08:11)
[2024-04-17] MEDS: Amiodarone 450 MG in Dextrose 5% in Water 250 ML IVPB SCH (17:09)
[2024-04-17] MEDS: Digoxin 0.5 MG/2 ML AMP SLOW IVP SCH (17:47)
[2024-04-17] MEDS: Amiodarone 150 MG in Dextrose 5% in Water 100 ML IVPB SCH (18:28)
[2024-04-18 04:52] LABS: Anion Gap 13 mmol/L (10-20); BUN (Urea Nitrogen) 23 mg/dL (8.4-25.7); Calc. Creatinine Clearance 85 mL/min (70-130); Calcium 8.5 mg/dL (7.8-10.44); Carbon Dioxide 29 mmol/L (23-31); Chloride 98 mmol/L (98-107); Estimated GFR 64; Glucose 198 mg/dL (80-115); Potassium 3.3 mmol/L (3.5-5.1); Sodium 137 mmol/L (136-145)
[2024-04-18] MEDS ORDERED: Electrolyte Replacement Protocol 1 EACH FS PRN (06:12)
[2024-04-18] MEDS: Potassium Chloride 20 MEQ TAB PO SCH (06:58)
[2024-04-18] MEDS: Digoxin 0.5 MG/2 ML AMP SLOW IVP SCH (09:15)
[2024-04-18 11:41] LABS: Potassium 3.6 mmol/L (3.5-5.1)
[2024-04-19 04:45] LABS: Anion Gap 16 mmol/L (10-20); BUN (Urea Nitrogen) 24 mg/dL (8.4-25.7); Calc. Creatinine Clearance 80 mL/min (70-130); Calcium 8.6 mg/dL (7.8-10.44); Carbon Dioxide 28 mmol/L (23-31); Chloride 97 mmol/L (98-107); Estimated GFR 61; Glucose 236 mg/dL (80-115); Potassium 3.2 mmol/L (3.5-5.1); Sodium 138 mmol/L (136-145)
[2024-04-19] MEDS: predniSONE 20 MG TAB PO SCH (08:58)
[2024-04-19] MEDS: Potassium Chloride 20 MEQ TAB PO SCH ×2 (08:59)
[2024-04-19 15:22] LABS: Potassium 3.8 mmol/L (3.5-5.1)
[2024-04-21] MEDS: Ipratropium/Albuterol 3 ML NEB NEB SCH (12:45)
[2024-04-22 11:41] VITALS: BMI 30.9
[2024-04-23 04:41] LABS: #Basophils Less than 0.03 10x3/uL (0.0-0.2); %Basophils 0.1 % (0.0-1.0); %Eosinophils 2.2 % (0.0-10.0); %Lymphocytes 9.2 % (21.0-51.0); %Monocytes 11.5 % (0.0-10.0); %Neutrophils 76.4 % (42.0-75.0); Hematocrit 37.3 % (42.0-52.0); Hemoglobin 12.1 g/dL (14.0-18.0); Mean Corpuscular HGB CONC 32.4 g/dL (32.0-36.0); Mean Corpuscular Hemoglobin 28.1 pg (27.0-31.0); Mean Corpuscular Volume 86.5 fL (78.0-98.0); Mean Platelet Volume 8.8 fL (7.4-10.4); Platelet Count 232 10x3/uL (130-400); RBC Distribution Width 15.3 % (11.5-14.5); Red Blood Cell (RBC) Count 4.31 mill/uL (4.70-6.10)
[2024-04-23 05:00] LABS: Anion Gap 14 mmol/L (10-20); BUN (Urea Nitrogen) 29 mg/dL (8.4-25.7); Calc. Creatinine Clearance 85 mL/min (70-130); Calcium 8.5 mg/dL (7.8-10.44); Carbon Dioxide 27 mmol/L (23-31); Chloride 99 mmol/L (98-107); Estimated GFR 65; Glucose 131 mg/dL (80-115); Potassium 3.7 mmol/L (3.5-5.1); Sodium 136 mmol/L (136-145)
[2024-04-23] MEDS ORDERED: Ketamine In 0.9 % NaCl 50 MG/5 ML SYRINGE ONE (09:38)
[2024-04-23] MEDS ORDERED: Midazolam HCl 2 mg/2 ml Vial ONE ×2 (09:38→10:20)
[2024-04-23] MEDS ORDERED: fentaNYL 50 mcg/mL 1 mL Vial ONE (10:22)
[2024-04-23] MEDS ORDERED: Glycopyrrolate 0.2 MG/ML 5 ML SYRINGE ONE (10:23)
[2024-04-23] MEDS: predniSONE 5 MG TAB PO SCH (11:54)
[2024-04-23] MEDS: Amiodarone 200 MG TAB PO SCH (13:51)
[2024-04-24 06:30] LABS: #Basophils Less than 0.03 10x3/uL (0.0-0.2); %Basophils 0.1 % (0.0-1.0); %Eosinophils 3.6 % (0.0-10.0); %Lymphocytes 14.1 % (21.0-51.0); %Monocytes 14.6 % (0.0-10.0); %Neutrophils 67.2 % (42.0-75.0); Hematocrit 36.6 % (42.0-52.0); Hemoglobin 11.8 g/dL (14.0-18.0); Mean Corpuscular HGB CONC 32.2 g/dL (32.0-36.0); Mean Corpuscular Hemoglobin 28.2 pg (27.0-31.0); Mean Corpuscular Volume 87.6 fL (78.0-98.0); Mean Platelet Volume 9.1 fL (7.4-10.4); Platelet Count 215 10x3/uL (130-400); RBC Distribution Width 15.5 % (11.5-14.5); Red Blood Cell (RBC) Count 4.18 mill/uL (4.70-6.10)
[2024-04-24 06:46] LABS: Anion Gap 13 mmol/L (10-20); BUN (Urea Nitrogen) 28 mg/dL (8.4-25.7); Calc. Creatinine Clearance 77 mL/min (70-130); Calcium 8.5 mg/dL (7.8-10.44); Carbon Dioxide 28 mmol/L (23-31); Chloride 100 mmol/L (98-107); Estimated GFR 62; Glucose 109 mg/dL (80-115); Potassium 3.6 mmol/L (3.5-5.1); Sodium 137 mmol/L (136-145)
[2024-04-24] MEDS: Spironolactone 25 MG TAB PO SCH (09:06)
[2024-04-24] MEDS: Apixaban 5 MG TAB PO SCH (21:07)
[2024-04-25] MEDS: predniSONE 5 MG TAB PO SCH (09:37)
[2024-04-26 04:41] LABS: #Basophils Less than 0.03 10x3/uL (0.0-0.2); %Basophils 0.2 % (0.0-1.0); %Eosinophils 4.4 % (0.0-10.0); %Lymphocytes 12.2 % (21.0-51.0); %Monocytes 13.4 % (0.0-10.0); Hematocrit 38.1 % (42.0-52.0); Hemoglobin 12.2 g/dL (14.0-18.0); Mean Corpuscular Hemoglobin 28.9 pg (27.0-31.0); Mean Corpuscular Volume 90.3 fL (78.0-98.0); Platelet Count 221 10x3/uL (130-400); RBC Distribution Width 15.4 % (11.5-14.5); Red Blood Cell (RBC) Count 4.22 mill/uL (4.70-6.10)
[2024-04-26 05:19] LABS: ALT (SGPT) 30 U/L (8-55); AST (SGOT) 18 U/L (5-34); Albumin 3.3 g/dL (3.4-4.8); Alkaline Phosphatase 81 U/L (40-110); Anion Gap 14 mmol/L (10-20); BUN (Urea Nitrogen) 21 mg/dL (8.4-25.7); Bilirubin, Total 0.7 mg/dL (0.2-1.2); Calc. Creatinine Clearance 70 mL/min (70-130); Calcium 8.4 mg/dL (7.8-10.44); Carbon Dioxide 24 mmol/L (23-31); Chloride 102 mmol/L (98-107); Estimated GFR 58; Globulin 2.6 g/dL (2.4-3.5); Glucose 141 mg/dL (80-115); Potassium 3.7 mmol/L (3.5-5.1); Protein, Total 5.9 g/dL (5.8-8.1); Sodium 136 mmol/L (136-145)
[2024-04-26 09:03] VITALS: TEMP 98.3
[2024-04-26 12:33] VITALS: BP 124/64
== END 2024-04-26 14:25 | disposition home or self-care (01) | DRG 280 ==
LOC: ERS 07:54 → CCU 10:08 → IMCU/EMU 04-17 03:51 → 2NO 04-17 16:13
PROVIDERS: ADMIT Family Medicine; ATTEND Internal Medicine
PROC: 0HBAXZX Excision of Inguinal Skin, External Approach, Diagnostic (ICD-10-PCS; principal; 2024-04-15)
PROC: B24BZZ4 Ultrasonography of Heart with Aorta, Transesophageal (ICD-10-PCS; 2024-04-24)
PROC: 5A2204Z Restoration of Cardiac Rhythm, Single (ICD-10-PCS; 2024-04-24)
DX: I13.0 Hypertensive heart and chronic kidney disease with heart failure and stage 1 through stage 4 chronic kidney disease, or unspecified chronic kidney disease (principal); I50.23 Acute on chronic systolic (congestive) heart failure; I21.A1 Myocardial infarction type 2; J96.01 Acute respiratory failure with hypoxia; J44.1 Chronic obstructive pulmonary disease with (acute) exacerbation; N17.9 Acute kidney failure, unspecified; N18.9 Chronic kidney disease, unspecified; Z79.82 Long term (current) use of aspirin; Z79.899 Other long term (current) drug therapy; G47.33 Obstructive sleep apnea (adult) (pediatric); E78.5 Hyperlipidemia, unspecified; I42.9 Cardiomyopathy, unspecified; I48.91 Unspecified atrial fibrillation; C60.9 Malignant neoplasm of penis, unspecified; D64.9 Anemia, unspecified; Z86.73 Personal history of transient ischemic attack (TIA), and cerebral infarction without residual deficits; E66.9 Obesity, unspecified; Z68.28 Body mass index [BMI] 28.0-28.9, adult
CPT/HCPCS: 36415; 36600; 71045; 71250; 74178; 80048; 80053; 81001; 82805; 83735; 83880; 84484; 85025; 87428; 88305; 88342; 92960; 93005; 93306; 93312; 93798; 94640; 94644; 94660; 94760; 96365; 96366; 96375; 97139; J0282; J1160; J1650; J1940; J1956; J2250; J2919; J3010; J3490; J7070; J7512; J7611; J7620

== ENCOUNTER 2024-06-05 09:14 | Outpatient (CLI) | payer MEDICARE | END 2024-06-05 09:15 | disposition home or self-care (01) | LOC: RAD 09:14 | PROVIDERS: ATTEND Internal Medicine Critical Care Medicine | DX: R06.00 Dyspnea, unspecified (principal); I51.89 Other ill-defined heart diseases; Z87.09 Personal history of other diseases of the respiratory system; Z95.810 Presence of automatic (implantable) cardiac defibrillator | CPT/HCPCS: 71046 ==